=== PATIENT | female | born 1965 | race Caucasian/White ===

== ENCOUNTER 2018-04-23 16:23 | Emergency (ER) | payer OTHER ==
[~2018-04-23] VITALS: Ht 160 cm; Wt 56.2 kg
[~2018-04-23 16:23] MED LIST: AMBIEN CR12.5 MG PO; BIOTIN1 MG PO; DELTASONE20 M1 PO; HUMIRA; IMURAN50 MG PO; LORTAB 5-325 M1 EACH PO; MIRALAX17 GM PO; REMICADE10 MG/ML; TRAMADOL; ULTRAM50 MG PO; VIVELLE-DOT,0.025 MG TD; [UNRECOGNIZED DRUG - OTHER]
[2018-04-23] MEDS ORDERED: MOTRIN600 MG PO (19:08)
[2018-04-23] MEDS ORDERED: SKELAXIN800 MG PO (19:08)
[2018-04-23 19:30] VITALS: BP 125/71
[2018-04-23] MEDS ORDERED: STELARA90 MG/1 ML SC (19:55)
[2018-04-23] MEDS ORDERED: XANAX0.5 MG PO (19:56)
[2018-04-23] MEDS ORDERED: AMBIEN CR12.5 MG PO (19:57)
[2018-04-23] MEDS ORDERED: CLIMARA0.05 MG TP (19:58)
== END 2018-04-23 19:31 | disposition home or self-care (01) ==
LOC: EME 16:23
DX: S00.83XA Contusion of other part of head, initial encounter (principal); S16.1XXA Strain of muscle, fascia and tendon at neck level, initial encounter; M25.552 Pain in left hip; V44.5XXA Car driver injured in collision with heavy transport vehicle or bus in traffic accident, initial encounter; Y92.411 Interstate highway as the place of occurrence of the external cause
CPT/HCPCS: 70150; 72050; 99281; 99284